=== PATIENT | female | born 1960 | race Caucasian/White ===

== ENCOUNTER → 2025-08-14 10:27 | Outpatient (BNVA) | payer MEDICARE, OTHER, SELFPAY | PROVIDERS: Referring Provider Nurse Practitioner Family; Visit Provider Internal Medicine Rheumatology | DX: M13.0 Polyarthritis, unspecified (principal); Z79.899 Other long term (current) drug therapy; R76.89 Other specified abnormal immunological findings in serum; Z71.85 Encounter for immunization safety counseling; G25.81 Restless legs syndrome | CPT/HCPCS: 36415; 80076; 82306; 82565; 83520; 85025; 85651; 86140; 86200; 86480; 86704; 86803; 87340; 99204 ==